=== PATIENT | female | born 1955 | race Caucasian/White ===

== ENCOUNTER 2017-08-16 22:54 | Emergency (ER) | payer OTHER ==
[~2017-08-16] VITALS: Ht 165.1 cm; Wt 80.7 kg
[2017-08-16 23:00] VITALS: Ht 165.1 cm; Wt 80.7 kg
[2017-08-17 00:15] VITALS: BP 143/73
== END 2017-08-17 00:15 | disposition home or self-care (01) ==
LOC: ED 22:54
DX: J18.1 Lobar pneumonia, unspecified organism (principal); R91.8 Other nonspecific abnormal finding of lung field; I10 Essential (primary) hypertension; Z88.5 Allergy status to narcotic agent
CPT/HCPCS: J0696; J7620